=== PATIENT | female | born 1995 | race American Indian/Alaskan Native ===

== ENCOUNTER 2020-08-09 18:35 | Emergency (ER) | payer MEDICAID ==
[2020-08-09] MEDS ORDERED: SODIUM CHLORIDE 0.9% 1000 ML 1,000 ML IV ONE (18:48)
[2020-08-09] MEDS ORDERED: ONDANSETRON 4 MG/2 ML INJ IV ONE (18:48)
[2020-08-09] MEDS ORDERED: MORPHINE 4 MG/1 ML INJ IV ONE (18:48)
--- NOTE | 2020-08-09 18:51 | Emergency Department Report ---
ED Abdominal Pain HPI - General Stated Complaint: ABD PAIN X 2DAYS Time Seen by Provider: 08/09/20 18:42 Source: patient Mode of arrival: Ambulatory Limitations: No Limitations - History of Present Illness Initial Comments: Patient is a 24-year-old female presents emergency room complaints of epigastric abdominal pain that began last night. she states that she ate [employer] yesterday before her symptoms began. She has associated nausea and vomiting. She states that she had a normal bowel movement 2 days ago. She denies any diarrhea, fever, urinary symptoms, abnormal vaginal discharge, hematochezia, melena, hematemesis. She denies any sick contacts or recent travel. Past medical history of nephrolithiasis which she reports she was able to pass on her own. Past surgical history of x2. She is allergic to penicillin. She states her last menstrual cycle was in May and that she has very irregular cycles. - Related Data Previous Rx's Medication Instructions Recorded Last Taken Type Ibuprofen [Motrin 800 MG tab] 800 mg PO Q8HR PRN #30 tablet 12/19/15 Unknown Rx Hyoscyamine Subl [Levsin Sl 0.125 0.125 mg SL Q6HR PRN #7 tab 08/09/20 Unknown Rx TAB] Ondansetron [Zofran Odt] 4 mg PO Q8HR PRN #10 tab.rapdis 08/09/20 Unknown Rx Allergies Allergy/AdvReac Type Severity Reaction Status Date / Time Penicillins Allergy Hives Verified 08/09/20 18:50 ED Review of Systems ROS: Stated complaint: ABD PAIN X 2DAYS Other details as noted in HPI Comment: All other systems reviewed and negative ED Past Medical Hx - Surgical History Additional Surgical History: tonsillectomy - Social History Smoking Status: Never Smoker Substance Use Type: None - Medications Home Medications: Home Medications Medication Instructions Recorded Confirmed Last Taken Type Ibuprofen [Motrin 800 MG tab] 800 mg PO Q8HR PRN #30 tablet 12/19/15 Unknown Rx Hyoscyamine Subl [Levsin Sl 0.125 0.125 mg SL Q6HR PRN #7 tab 08/09/20 Unknown Rx TAB] Ondansetron [Zofran Odt] 4 mg PO Q8HR PRN #10 tab.rapdis 08/09/20 Unknown Rx ED Physical Exam - General Limitations: No Limitations General appearance: alert, in no apparent distress - Head Head exam: Present: atraumatic, normocephalic - Eye Eye exam: Present: normal appearance - ENT ENT exam: Present: mucous membranes moist - Respiratory Respiratory exam: Present: normal lung sounds bilaterally. Absent: respiratory distress, wheezes, rales, rhonchi, stridor, chest wall tenderness, accessory muscle use, decreased breath sounds, prolonged expiratory - Cardiovascular Cardiovascular Exam: Present: regular rate, normal rhythm, normal heart sounds. Absent: systolic murmur, diastolic murmur, rubs, gallop - GI/Abdominal GI/Abdominal exam: Present: soft, tenderness (epigastric), normal bowel sounds. Absent: distended, guarding, rebound, rigid - Neurological Exam Neurological exam: Present: alert, oriented X3 - Psychiatric Psychiatric exam: Present: normal affect, normal mood - Skin Skin exam: Present: warm, dry, intact ED Course Vital Signs 08/09/20 08/09/20 08/09/20 18:44 20:40 21:56 Temperature 97.9 F Pulse Rate 72 55 L Respiratory 20 14 14 Rate Blood Pressure 125/58 Blood Pressure 108/69 [Right] O2 Sat by Pulse 96 100 Oximetry ED Medical Decision Making - Lab Data Result diagrams: 08/09/20 19:03 08/09/20 19:03 Lab Results 08/09/20 08/09/20 08/09/20 Range/Units 19:03 19:03 19:03 WBC 7.6 (4.5-11.0) K/mm3 RBC 5.23 H (3.65-5.03) M/mm3 Hgb 14.2 (10.1-14.3) gm/dl Hct 42.5 (30.3-42.9) % MCV 81 (79-97) fl MCH 27 L (28-32) pg MCHC 33 (30-34) % RDW 14.2 (13.2-15.2) % Plt Count 194 (140-440) K/mm3 Lymph % (Auto) 13.4 (13.4-35.0) % [place] % (Auto) 7.0 (0.0-7.3) % Eos % (Auto) 0.7 (0.0-4.3) % Baso % (Auto) 0.4 (0.0-1.8) % Lymph # (Auto) 1.0 L (1.2-5.4) K/mm3 [place] # (Auto) 0.5 (0.0-0.8) K/mm3 Eos # (Auto) 0.1 (0.0-0.4) K/mm3 Baso # (Auto) 0.0 (0.0-0.1) K/mm3 Seg Neutrophils % 78.5 H (40.0-70.0) % Seg Neutrophils # 6.0 (1.8-7.7) K/mm3 Sodium 135 L (137-145) mmol/L Potassium 4.0 (3.6-5.0) mmol/L Chloride 100.5 (98-107) mmol/L Carbon Dioxide 26 (22-30) mmol/L Anion Gap 13 mmol/L BUN 14 (7-17) mg/dL Creatinine 0.6 (0.6-1.2) mg/dL Estimated GFR > 60 ml/min BUN/Creatinine Ratio 23 % Glucose 110 H (65-100) mg/dL Calcium 9.4 (8.4-10.2) mg/dL Total Bilirubin 2.50 H (0.1-1.2) mg/dL AST 120 H (5-40) units/L ALT 175 H (7-56) units/L Alkaline Phosphatase 115 (35-129) units/L Total Protein 7.7 (6.3-8.2) g/dL Albumin 4.5 (3.9-5) g/dL Albumin/Globulin Ratio 1.4 % Lipase 20 (13-60) units/L HCG, Qual Negative (Negative) Urine Color (Yellow) Urine Turbidity (Clear) Urine pH (5.0-7.0) Ur Specific Daniel (1.003-1.030) Urine Protein (Negative) mg/dL Urine Glucose (UA) (Negative) mg/dL Urine Ketones (Negative) mg/dL Urine Blood (Negative) Urine Nitrite (Negative) Urine Bilirubin (Negative) Urine Ictotest (Negative) Urine Urobilinogen (<2.0) mg/dL Ur Leukocyte Esterase (Negative) Urine WBC (Auto) (0.0-6.0) /HPF Urine RBC (Auto) (0.0-6.0) /HPF U Epithel Cells (Auto) (0-13.0) /HPF Urine Mucus /HPF 08/09/20 Range/Units 20:38 WBC (4.5-11.0) K/mm3 RBC (3.65-5.03) M/mm3 Hgb (10.1-14.3) gm/dl Hct (30.3-42.9) % MCV (79-97) fl MCH (28-32) pg MCHC (30-34) % RDW (13.2-15.2) % Plt Count (140-440) K/mm3 Lymph % (Auto) (13.4-35.0) % [place] % (Auto) (0.0-7.3) % Eos % (Auto) (0.0-4.3) % Baso % (Auto) (0.0-1.8) % Lymph # (Auto) (1.2-5.4) K/mm3 [place] # (Auto) (0.0-0.8) K/mm3 Eos # (Auto) (0.0-0.4) K/mm3 Baso # (Auto) (0.0-0.1) K/mm3 Seg Neutrophils % (40.0-70.0) % Seg Neutrophils # (1.8-7.7) K/mm3 Sodium (137-145) mmol/L Potassium (3.6-5.0) mmol/L Chloride (98-107) mmol/L Carbon Dioxide (22-30) mmol/L Anion Gap mmol/L BUN (7-17) mg/dL Creatinine (0.6-1.2) mg/dL Estimated GFR ml/min BUN/Creatinine Ratio % Glucose (65-100) mg/dL Calcium (8.4-10.2) mg/dL Total Bilirubin (0.1-1.2) mg/dL AST (5-40) units/L ALT (7-56) units/L Alkaline Phosphatase (35-129) units/L Total Protein (6.3-8.2) g/dL Albumin (3.9-5) g/dL Albumin/Globulin Ratio % Lipase (13-60) units/L HCG, Qual (Negative) Urine Color Brinda (Yellow) Urine Turbidity Clear (Clear) Urine pH 5.0 (5.0-7.0) Ur Specific Daniel 1.033 H (1.003-1.030) Urine Protein 30 mg/dl (Negative) mg/dL Urine Glucose (UA) Neg (Negative) mg/dL Urine Ketones Neg (Negative) mg/dL Urine Blood Neg (Negative) Urine Nitrite Neg (Negative) Urine Bilirubin Sm (Negative) Urine Ictotest Positive (Negative) Urine Urobilinogen 4.0 (<2.0) mg/dL Ur Leukocyte Esterase Neg (Negative) Urine WBC (Auto) 3.0 (0.0-6.0) /HPF Urine RBC (Auto) 1.0 (0.0-6.0) /HPF U Epithel Cells (Auto) 5.0 (0-13.0) /HPF Urine Mucus 1+ /HPF - Radiology Data Radiology results: report reviewed Ordering Physician: HIWOT ALVARADO Date of Service: 08/09/20 Procedure(s): CT abdomen pelvis w con Accession Number(s): [id number] cc: HIWOT ALVARADO CT ABDOMEN AND PELVIS WITH CONTRAST INDICATION: epigastric abd pain, n/v CONTRAST: 100 cc Omnipaque 300 IV COMPARISON: None available. All CT scans at this location are performed using CT dose reduction for ALARA by means of automated exposure control. NOTE: Resolution is decreased and artifact is introduced by the patient's size. FINDINGS: Lung bases are clear. No pneumoperitoneum is seen. No significant abdominal wall herniation is noted. No lymphadenopathy is seen. No free fluid is noted. Liver is mildly enlarged and has a length of 18.5 cm but no focal lesions are seen. Spleen is not enlarged. No masses are noted. No urinary or bowel obstructive changes are seen. Appendix appears within normal limits. No focal inflammatory changes are seen. No adnexal masses are noted. Gallbladder and bile ducts appear within normal limits. IMPRESSION: No acute abnormalities are seen Signer Name: Vamshi Mckenna MD Signed: 08/09/2020 9:01 PM Workstation Name: [id number] Transcribed By: GJ Dictated By: Vamshi Mckenna MD Electronically Authenticated By: Vamshi Mckenna MD Signed Date/Time: 08/09/202100 DD/ 57 TD/TT: - Medical Decision Making Patient is a 24-year-old female presents emergency room complaints of epigastric abdominal pain that began last night. she states that she ate [employer] yesterday before her symptoms began. She has associated nausea and vomiting. She states that she had a normal bowel movement 2 days ago. She denies any diarrhea, fever, urinary symptoms, abnormal vaginal discharge, hematochezia, melena, hematemesis. She denies any sick contacts or recent travel. Past medical history of nephrolithiasis which she reports she was able to pass on her own. Past surgical history of x2. She is allergic to penicillin. She states her last menstrual cycle was in May and that she has very irregular cycles. vitals are normal. On exam patient has epigastric tenderness outpatient, no guarding, no rebound, no rigidity, no peritoneal signs. White blood cell count is normal. Labs with mildly elevated ALT, AST, bilirubin. hCG is negative. UA without evidence of UTI. CT abd pelvis with IV contrast: IMPRESSION: No acute abnormalities are seen. Patient given 1 L normal saline, morphine, Zofran and symptoms improved and she was feeling much better when to go home. Discussed all results with patient. Discussed results and patient with Dr. Houston, ER attending who agrees with outpatient GI follow-up and discharge home. Given prescription for Zofran and Levsin. Advised patient Please take medication as prescribed as needed. Increase your water intake. Eat a bland liquid diet and slowly advance your diet as tolerated. Follow-up with your primary care doctor. Follow-up with a GI doctor. Please avoid Tylenol or alcohol or anything harmful to the liver. Return to emergency room for any new or worsening symptoms. Critical care attestation.: If time is entered above; I have spent that time in minutes in the direct care of this critically ill patient, excluding procedure time. ED Disposition Clinical Impression: Elevated LFTs Abdominal pain Qualifiers: Abdominal location: epigastric Qualified Code(s): R10.13 - Epigastric pain Nausea & vomiting Qualifiers: Vomiting type: unspecified Vomiting Intractability: non-intractable Qualified Code(s): R11.2 - Nausea with vomiting, unspecified Disposition: DC-01 TO HOME OR SELFCARE Is pt being admited?: No Does the pt Need Aspirin: No Condition: Stable Instructions: Gastritis, Adult Additional Instructions: Please take medication as prescribed as needed. Increase your water intake. Eat a bland liquid diet and slowly advance your diet as tolerated. Follow-up with your primary care doctor. Follow-up with a GI doctor. Please avoid Tylenol or alcohol or anything harmful to the liver. Return to emergency room for any new or worsening symptoms. Prescriptions: Hyoscyamine Subl [Levsin Sl 0.125 TAB] 0.125 mg SL Q6HR PRN #7 tab PRN Reason: abdominal cramping Ondansetron [Zofran Odt] 4 mg PO Q8HR PRN #10 tab.rapdis PRN Reason: nausea vomiting Referrals: PRIMARY CARE, [Primary Care Provider] - 2-3 Days [facility] [Provider Group] - 2-3 Days Time of Disposition: 21:19 Print Language: LITHUANIAN
[2020-08-09 19:22] LABS: Basophils % (Auto) 0.4 % (0.0-1.8); Eosinophils # (Auto) 0.1 K/mm3 (0.0-0.4); Eosinophils % (Auto) 0.7 % (0.0-4.3); Hematocrit 42.5 % (30.3-42.9); Hemoglobin 14.2 gm/dl (10.1-14.3); Lymphocytes % (Auto) 13.4 % (13.4-35.0); Mean Corpuscular HGB Conc 33 % (30-34); Mean Corpuscular Volume 81 fl (79-97); Monocytes # (Auto) 0.5 K/mm3 (0.0-0.8); Platelet Count 194 K/mm3 (140-440); Red Blood Count 5.23 M/mm3 (3.65-5.03); Red Cell Distribution Width 14.2 % (13.2-15.2)
[2020-08-09 19:38] LABS: Alanine Aminotransferase 175 units/L (7-56); Albumin 4.5 g/dL (3.9-5); Blood Urea Nitrogen 14 mg/dL (7-17); Calcium 9.4 mg/dL (8.4-10.2); Hemolysis Index 3
[2020-08-09 19:41] LABS: BUN/Creatinine Ratio 23
[2020-08-09 20:46] LABS: Bilirubin,Urine SM (Negative); Blood,Urine NEG (Negative); Color,Urine Amber (Yellow); Mucus,Urine 1+ /HPF
--- NOTE | 2020-08-09 21:05 | Cat Scan Report ---
CT ABDOMEN AND PELVIS WITH CONTRAST INDICATION: epigastric abd pain, n/v CONTRAST: 100 cc Omnipaque 300 IV COMPARISON: None available. All CT scans at this location are performed using CT dose reduction for ALARA by means of automated e xposure control. NOTE: Resolution is decreased and artifact is introduced by the patient's size. FINDINGS: Lung bases are clear. No pneumoperitoneum is seen. No significant abdominal wall herniation is noted. No lymphadenopathy is seen. No free fluid is noted. Liver is mildly enlarged and has a dax gth of 18.5 cm but no focal lesions are seen. Spleen is not enlarged. No masses are noted. No urinary or bowel obstructive changes are seen. Appendix appears within normal limits. No focal inflammatory changes are seen. No adnexal masses are noted. Gallbladder and bile ducts appear within normal limits . IMPRESSION: No acute abnormalities are seen Signer Name: Vamshi Mckenna MD Signed: 08/09/2020 9:01 PM Workstation Name: [id number]
[2020-08-09 21:15] LABS: Ictotest,Urine Positive (Negative)
[2020-08-09] MEDS ORDERED: IBUPROFEN 800 MG TAB PO ONE (21:54)
[2020-08-09 22:01] VITALS: BP 108/69
== END 2020-08-09 22:10 | disposition home or self-care (01) ==
LOC: ED 18:35
DX: R10.13 Epigastric pain (principal); R11.2 Nausea with vomiting, unspecified; R79.89 Other specified abnormal findings of blood chemistry; Z90.89 Acquired absence of other organs; Z79.1 Long term (current) use of non-steroidal anti-inflammatories (NSAID); Z79.899 Other long term (current) drug therapy; Z88.0 Allergy status to penicillin
CPT/HCPCS: 36415; 74177; 80053; 81001; 83690; 84703; 85025; 96361; 96374; 96375; 99284; J2270; J2405; J7030; Q9967

== ENCOUNTER 2020-10-06 12:16 | Emergency (ER) | payer MEDICAID ==
[2020-10-06 13:17] VITALS: BP 117/68
== END 2020-10-06 14:00 | disposition left against medical advice (07) ==
LOC: ED 12:16
DX: R10.9 Unspecified abdominal pain (principal); Z53.21 Procedure and treatment not carried out due to patient leaving prior to being seen by health care provider

== ENCOUNTER 2021-03-13 11:26 | Emergency (ER) | payer MEDICAID ==
[2021-03-13 11:44] VITALS: BP 103/64
[2021-03-13] MEDS ORDERED: HYDROcodone/ACETAMINOPHEN 5-325 MG TAB PO ONE (13:51)
--- NOTE | 2021-03-13 13:55 | Emergency Department Report ---
HPI - General Chief Complaint: Abdominal Pain Time Seen by Provider: 03/13/21 13:50 - HPI HPI: 25-year-old female presents to the emergency department with a complaint of abdominal pain x3 days that worsened last night. She denies any vomiting, vaginal bleeding or discharge, dysuria, back pain, fever. Currently her abdominal pain is 8 out of 10 in intensity. No known aggravating or alleviating factors. The patient had surgery 4 months ago at [facility] for an ectopic . It sounds like the patient had left-sided tubal removal. She also has a history of 2 previous C-sections. Otherwise she denies any past medical history. She has not taken anything for symptoms prior to presentation today. No recent travel or sick contacts at home. ED Past Medical Hx - Surgical History Additional Surgical History: tonsillectomy - Social History Smoking Status: Current Every Day Smoker Substance Use Type: Alcohol - Medications Home Medications: Home Medications Medication Instructions Recorded Confirmed Last Taken Type Ibuprofen [Motrin 800 MG tab] 800 mg PO Q8HR PRN #30 tablet 12/19/15 Unknown Rx Hyoscyamine Subl [Levsin Sl 0.125 0.125 mg SL Q6HR PRN #7 tab 08/09/20 Unknown Rx TAB] Ondansetron [Zofran Odt] 4 mg PO Q8HR PRN #10 tab.rapdis 08/09/20 Unknown Rx traMADoL [Ultram 50 MG tab] 50 mg PO Q6HR PRN #10 tablet 03/13/21 Unknown Rx ED Review of Systems ROS: Stated complaint: ABD PAIN X 3 DAYS Other details as noted in HPI Comment: All other systems reviewed and negative Constitutional: denies: chills, fever Eyes: denies: eye pain, vision change ENT: denies: ear pain, throat pain Respiratory: denies: cough, shortness of breath Cardiovascular: denies: chest pain, palpitations Gastrointestinal: abdominal pain. denies: vomiting Genitourinary: denies: dysuria, discharge Musculoskeletal: denies: back pain, arthralgia Skin: denies: rash, lesions Neurological: denies: headache, weakness Physical Exam - Physical Exam Vital Signs: Vital Signs 03/13/21 11:43 Temperature 98.7 F Pulse Rate 64 Respiratory 18 Rate Blood Pressure 103/64 [Left] O2 Sat by Pulse 100 Oximetry Physical Exam: GENERAL: The patient is well-developed well-nourished. HENT: Normocephalic. Atraumatic. Patient has moist mucous membranes. EYES: Extraocular motions are intact. NECK: Supple. Trachea is midline. CHEST/LUNGS: Clear to auscultation. There is no respiratory distress noted. HEART/CARDIOVASCULAR: Regular. There is no tachycardia. There is no murmur. ABDOMEN: Abdomen is soft. Left upper quadrant and bilateral lower quadrant abdominal tenderness to palpation. No guarding. Patient has normal bowel sounds. Obese habitus. SKIN: Skin is warm and dry. NEURO: The patient is awake, alert, and oriented. The patient is cooperative. The patient has no focal neurologic deficits. Normal speech. MUSCULOSKELETAL: There is no tenderness or deformity. There is no limitation range of motion. ED Course Vital Signs 03/13/21 11:43 Temperature 98.7 F Pulse Rate 64 Respiratory 18 Rate Blood Pressure 103/64 [Left] O2 Sat by Pulse 100 Oximetry ED Medical Decision Making - Lab Data Result diagrams: 03/13/21 13:58 03/13/21 13:58 Lab Results 03/13/21 03/13/21 03/13/21 Range/Units 13:58 13:58 13:58 WBC 9.5 (4.5-11.0) K/mm3 RBC 5.18 H (3.65-5.03) M/mm3 Hgb 14.2 (10.1-14.3) gm/dl Hct 42.7 (30.3-42.9) % MCV 83 (79-97) fl MCH 27 L (28-32) pg MCHC 33 (30-34) % RDW 13.5 (13.2-15.2) % Plt Count 196 (140-440) K/mm3 Lymph % (Auto) 12.0 L (13.4-35.0) % [place] % (Auto) 5.8 (0.0-7.3) % Eos % (Auto) 0.4 (0.0-4.3) % Baso % (Auto) 0.3 (0.0-1.8) % Lymph # (Auto) 1.1 L (1.2-5.4) K/mm3 [place] # (Auto) 0.5 (0.0-0.8) K/mm3 Eos # (Auto) 0.0 (0.0-0.4) K/mm3 Baso # (Auto) 0.0 (0.0-0.1) K/mm3 Seg Neutrophils % 81.5 H (40.0-70.0) % Seg Neutrophils # 7.8 H (1.8-7.7) K/mm3 Sodium 134 L (137-145) mmol/L Potassium 4.3 (3.6-5.0) mmol/L Chloride 99.6 (98-107) mmol/L Carbon Dioxide 25 (22-30) mmol/L Anion Gap 14 mmol/L BUN 14 (7-17) mg/dL Creatinine 0.6 (0.6-1.2) mg/dL Estimated GFR > 60 ml/min BUN/Creatinine Ratio 23 % Glucose 129 H (65-100) mg/dL Calcium 9.5 (8.4-10.2) mg/dL Total Bilirubin 0.70 (0.1-1.2) mg/dL Direct Bilirubin 0.4 H (0-0.2) mg/dL Indirect Bilirubin 0.3 mg/dL AST 158 H (5-40) units/L ALT 88 H (7-56) units/L Alkaline Phosphatase 90 (35-129) units/L Total Protein 8.0 (6.3-8.2) g/dL Albumin 4.4 (3.9-5) g/dL Albumin/Globulin Ratio 1.2 % Lipase 19 (13-60) units/L HCG, Qual Negative (Negative) Urine Color (Yellow) Urine Turbidity (Clear) Urine pH (5.0-7.0) Ur Specific [place] (1.003-1.030) Urine Protein (Negative) mg/dL Urine Glucose (UA) (Negative) mg/dL Urine Ketones (Negative) mg/dL Urine Blood (Negative) Urine Nitrite (Negative) Urine Bilirubin (Negative) Urine Urobilinogen (<2.0) mg/dL Ur Leukocyte Esterase (Negative) Urine WBC (Auto) (0.0-6.0) /HPF Urine RBC (Auto) (0.0-6.0) /HPF U Epithel Cells (Auto) (0-13.0) /HPF Amorphous Crystals Urine Mucus /HPF 03/13/21 Range/Units Unknown WBC (4.5-11.0) K/mm3 RBC (3.65-5.03) M/mm3 Hgb (10.1-14.3) gm/dl Hct (30.3-42.9) % MCV (79-97) fl MCH (28-32) pg MCHC (30-34) % RDW (13.2-15.2) % Plt Count (140-440) K/mm3 Lymph % (Auto) (13.4-35.0) % [place] % (Auto) (0.0-7.3) % Eos % (Auto) (0.0-4.3) % Baso % (Auto) (0.0-1.8) % Lymph # (Auto) (1.2-5.4) K/mm3 [place] # (Auto) (0.0-0.8) K/mm3 Eos # (Auto) (0.0-0.4) K/mm3 Baso # (Auto) (0.0-0.1) K/mm3 Seg Neutrophils % (40.0-70.0) % Seg Neutrophils # (1.8-7.7) K/mm3 Sodium (137-145) mmol/L Potassium (3.6-5.0) mmol/L Chloride (98-107) mmol/L Carbon Dioxide (22-30) mmol/L Anion Gap mmol/L BUN (7-17) mg/dL Creatinine (0.6-1.2) mg/dL Estimated GFR ml/min BUN/Creatinine Ratio % Glucose (65-100) mg/dL Calcium (8.4-10.2) mg/dL Total Bilirubin (0.1-1.2) mg/dL Direct Bilirubin (0-0.2) mg/dL Indirect Bilirubin mg/dL AST (5-40) units/L ALT (7-56) units/L Alkaline Phosphatase (35-129) units/L Total Protein (6.3-8.2) g/dL Albumin (3.9-5) g/dL Albumin/Globulin Ratio % Lipase (13-60) units/L HCG, Qual (Negative) Urine Color Brinda (Yellow) Urine Turbidity Cloudy (Clear) Urine pH 7.0 (5.0-7.0) Ur Specific [place] 1.026 (1.003-1.030) Urine Protein 30 mg/dl (Negative) mg/dL Urine Glucose (UA) Neg (Negative) mg/dL Urine Ketones Neg (Negative) mg/dL Urine Blood Neg (Negative) Urine Nitrite Neg (Negative) Urine Bilirubin Neg (Negative) Urine Urobilinogen 4.0 (<2.0) mg/dL Ur Leukocyte Esterase Neg (Negative) Urine WBC (Auto) < 1.0 (0.0-6.0) /HPF Urine RBC (Auto) 8.0 (0.0-6.0) /HPF U Epithel Cells (Auto) 3.0 (0-13.0) /HPF Amorphous Crystals 3+ Urine Mucus Few /HPF - Radiology Data Radiology results: report reviewed, image reviewed interpreted by me: Abdominal x-ray shows nonspecific nonobstructive bowel gas. No free air. ULTRASOUND ABDOMEN, LIMITED (RIGHT UPPER QUADRANT) INDICATION: upper abdominal pain. COMPARISON: None available. FINDINGS: Pancreas: Not visualized due to overlying bowel gas. Liver: Normal. Gallbladder: There are punctate gallstones. No gallbladder wall thickening or pericholecystic fluid. Bile ducts: Normal. Common Bile Duct measures 3 mm. Free fluid: None. Additional Findings: None. IMPRESSION: 1. Minimal cholelithiasis. No sonographic evidence of acute cholecystitis. - Medical Decision Making This patient presents with a 3-day history of abdominal pain. On examination there is reproducible tenderness to palpation to the left upper quadrant and bilateral lower quadrants. No guarding. Obese habitus. Patient's labs are mostly unremarkable except for transaminitis with AST >> ALT. The patient does later admit that she is a heavy drinker without any history of alcohol dependence or withdrawal. The rest the labs are mostly unremarkable including CBC, lipase, urinalysis, and the patient is not . Abdominal x-ray shows nonspecific nonobstructive bowel gas, no free air. Upper quadrant abdominal ultrasound shows mild cholelithiasis without cholecystitis. Vital signs reassuring throughout her ED course including being afebrile. Patient appears safe for discharge home at this time. She has been given a outpatient referral for general surgery to establish care regarding cholelithiasis. She has been given a referral for GI to follow-up regarding her transaminitis and abdominal pains. We discussed avoiding alcohol and Tylenol/acetaminophen use. She will return to the emergency department with any worsening of her symptoms or with any acute distress. Critical Care Time: No Critical care attestation.: If time is entered above; I have spent that time in minutes in the direct care of this critically ill patient, excluding procedure time. ED Disposition Clinical Impression: Elevated liver enzymes Abdominal pain Qualifiers: Abdominal location: unspecified location Qualified Code(s): R10.9 - Unspecified abdominal pain Cholelithiasis Qualifiers: Cholelithiasis location: gallbladder Cholecystitis presence: without cholecystitis Biliary obstruction: without biliary obstruction Qualified Code(s): K80.20 - Calculus of gallbladder without cholecystitis without obstruction Disposition: 01 HOME / SELF CARE / HOMELESS Is pt being admited?: No Condition: Stable Instructions: Cholelithiasis, Abdominal Pain, Adult, Abdominal Pain (ED) Additional Instructions: You were found to have elevated liver enzymes. Please avoid any alcohol or any Tylenol/acetaminophen use, as these can worsen your liver enzymes. I have given you a referral for [facility] to follow-up regarding your elevated liver enzymes. I have given you a referral for a local general surgeon, Dr. Bustos, to follow- up regarding the ultrasound findings of gallstones. Return to the emergency department with any worsening of your symptoms, new or concerning symptoms not addressed during this current emergency department visit, or with any acute distress. You have been prescribed a medication that is sedating and therefore should not be taken prior to driving, working, and responsible for children and in no way should be mixed with alcohol of any quantity. Prescriptions: traMADoL [Ultram 50 MG tab] 50 mg PO Q6HR PRN #10 tablet PRN Reason: Pain Referrals: PATRICIA BUSTOS DO [Staff Physician] - 3-5 Days [facility] [Provider Group] - 3-5 Days Time of Disposition: 16:32
[2021-03-13 14:08] LABS: Basophils % (Auto) 0.3 % (0.0-1.8); Eosinophils % (Auto) 0.4 % (0.0-4.3); Hematocrit 42.7 % (30.3-42.9); Hemoglobin 14.2 gm/dl (10.1-14.3); Lymphocytes # (Auto) 1.1 K/mm3 (1.2-5.4); Mean Corpuscular HGB Conc 33 % (30-34); Mean Corpuscular Volume 83 fl (79-97); Monocytes # (Auto) 0.5 K/mm3 (0.0-0.8); Monocytes % (Auto) 5.8 % (0.0-7.3); Platelet Count 196 K/mm3 (140-440); Red Blood Count 5.18 M/mm3 (3.65-5.03); Red Cell Distribution Width 13.5 % (13.2-15.2)
[2021-03-13] MEDS ORDERED: IBUPROFEN 800 MG TAB PO ONE (14:29)
[2021-03-13 14:31] LABS: Alanine Aminotransferase 88 units/L (7-56); Albumin 4.4 g/dL (3.9-5); Bilirubin,Direct 0.4 mg/dL (0-0.2); Blood Urea Nitrogen 14 mg/dL (7-17); Calcium 9.5 mg/dL (8.4-10.2); Hemolysis Index 7
[2021-03-13 14:55] LABS: BUN/Creatinine Ratio 23
--- NOTE | 2021-03-13 14:55 | XRay Report ---
ABDOMEN 4 VIEW(S) INDICATION / CLINICAL INFORMATION: Abd pain. COMPARISON: None available. FINDINGS: TUBES / LINES: None. BOWEL GAS PATTERN: No significant abnormality. FREE AIR / EXTRALUMINAL GAS: None seen. ADDITIONAL FINDINGS: No acute findings on the included chest radiograph. IMPRESSION: 1. No radiographic evidence of acute abdomen. Signer Name: Rory Mac MD Signed: 03/13/2021 2:51 PM Workstation Name: [email or web address]
--- NOTE | 2021-03-13 16:08 | Ultrasound Report ---
. ULTRASOUND ABDOMEN, LIMITED (RIGHT UPPER QUADRANT) INDICATION: upper abdominal pain. COMPARISON: None available. FINDINGS: Pancreas: Not visualized due to overlying bowel gas. Liver: Normal. Gallbladder: There are punctate gallstones. No gallbladder wall thickening or pericholecystic fluid. Bile ducts: Normal. Common Bile Duct measures 3 mm. Free fluid: None. Additional Findings: None. IMPRESSION: 1. Minimal cholelithiasis. No sonographic evidence of acute cholecystitis. Signer Name: Rory Mac MD Signed: 03/13/2021 4:04 PM Workstation Name: [facility]
[2021-03-13 16:20] LABS: Amorphous Crystals,Urine 3+; Bilirubin,Urine NEG (Negative); Blood,Urine NEG (Negative); Color,Urine Amber (Yellow); Mucus,Urine FEW /HPF; WBC,Urine < 1.0 /HPF (0.0-6.0)
== END 2021-03-13 17:12 | disposition home or self-care (01) ==
LOC: ED 11:26
DX: K80.20 Calculus of gallbladder without cholecystitis without obstruction (principal); R74.01 Elevation of levels of liver transaminase levels; Z98.890 Other specified postprocedural states; F17.200 Nicotine dependence, unspecified, uncomplicated
CPT/HCPCS: 36415; 74022; 76705; 80048; 80076; 81001; 83690; 84703; 85025; 99284